=== PATIENT | female | born 1950 | race Caucasian/White ===

== ENCOUNTER 2023-02-28 22:38 | Observation (INO) | payer OTHER, MEDICARE ==
[2023-02-28 22:46] VITALS: BMI 28.1
[2023-02-28] MEDS ORDERED: ACETAMINOPHEN 1000 MG/100 ML BAG IVPB ONE (23:32)
[2023-02-28] MEDS ORDERED: ACETAMINOPHEN INJECTION 100 ML IVPB ONE (23:38)
[2023-02-28 23:45] LABS: BASO % 0.6 % (0-2.0); EOS % 2.1 % (0-4.5); HEMATOCRIT 41.4 % (32.4-45.2); HEMOGLOBIN 13.7 GM/dL (10.7-15.3); LYMPH % 35.2 % (8-40); MCH 26.7 pg (25.7-33.7); MEAN CELL VOLUME 80.7 fl (80-96); MEAN PLT VOLUME 8.3 fl (7.5-11.1); MONO % 9.4 % (3.8-10.2); NEUT % 52.7 % (42.8-82.8); PLATELET COUNT 259 10^3/uL (134-434); RBC 5.13 M/mm3 (3.60-5.2); RDW 16.8 % (11.6-15.6); WHITE BLOOD COUNT 8.5 K/mm3 (4.0-10.0)
[2023-03-01 00:03] LABS: POTASSIUM 4.5 mmol/L (3.5-5.1)
[2023-03-01] MEDS ORDERED: morphine CARPU-JECT 4 MG/1 ML DISP.SYRIN IVPUSH ONE (00:03)
[2023-03-01] MEDS ORDERED: LIDOCAINE 5% TOPICAL PATCH TP ONE (00:03)
[2023-03-01 00:05] LABS: CALCIUM 8.6 mg/dL (8.5-10.1)
[2023-03-01 00:06] LABS: ALBUMIN 3.9 g/dl (3.4-5.0); BLOOD UREA NITROGEN 21.8 mg/dL (7-18); MAGNESIUM 2.2 mg/dL (1.8-2.4)
[2023-03-01 00:09] LABS: CREATININE 0.9 mg/dL (0.55-1.3)
[2023-03-01 00:10] LABS: BILIRUBIN,TOTAL 0.3 mg/dL (0.2-1); TOT PROT 6.6 g/dl (6.4-8.2)
[2023-03-01] MEDS ORDERED: morphine SULFATE 4 MG/ML VIAL ONE (00:21)
[2023-03-01] MEDS ORDERED: LIDOCAINE 4% PATCH TP ONE (00:21)
[2023-03-01] MEDS ORDERED: ACETAMINOPHEN 325 MG TABLET (FP) PO PRN (06:10)
[2023-03-01] MEDS ORDERED: ALBUTEROL SO4 HFA INHALER IH PRN (06:23)
[2023-03-01] MEDS ORDERED: ACETAMINOPHEN 325 MG TABLET (FP) ONE (06:32)
[2023-03-01] MEDS: INSULIN SLIDING SCALE (NOVOLOG) 1 VIAL SQ SCH ×2 (08:18→11:49)
[2023-03-01 08:41] LABS: HEMOGLOBIN 12.8 GM/dL (10.7-15.3); MCH 26.5 pg (25.7-33.7); MEAN CELL VOLUME 82.7 fl (80-96); MEAN PLT VOLUME 8.8 fl (7.5-11.1); PLATELET COUNT 245 10^3/uL (134-434); RBC 4.84 M/mm3 (3.60-5.2); RDW 16.6 % (11.6-15.6); WHITE BLOOD COUNT 8.4 K/mm3 (4.0-10.0)
[2023-03-01 08:53] LABS: POTASSIUM 4.4 mmol/L (3.5-5.1)
[2023-03-01] MEDS ORDERED: LOSARTAN POTASSIUM 25 MG TABLET ONE (09:02)
[2023-03-01] MEDS ORDERED: SERTRALINE HCL 50 MG TABLET (FP) ONE (09:02)
[2023-03-01] MEDS ORDERED: PANTOPRAZOLE 20 MG TABLET PO ONE (09:03)
[2023-03-01] MEDS ORDERED: ENOXAPARIN NA (PORCINE) 40 MG/0.4 ML DISP.SYRIN SQ ONE (09:03)
[2023-03-01 09:06] LABS: ALBUMIN 3.6 g/dl (3.4-5.0); BLOOD UREA NITROGEN 19.4 mg/dL (7-18); CALCIUM 8.5 mg/dL (8.5-10.1)
[2023-03-01 09:07] LABS: MAGNESIUM 2.3 mg/dL (1.8-2.4)
[2023-03-01 09:08] LABS: BILIRUBIN,TOTAL 0.3 mg/dL (0.2-1); CREATININE 0.8 mg/dL (0.55-1.3)
[2023-03-01 09:26] VITALS: BP 137/71; PULSE 80; RESP 14; TEMP 98
[2023-03-01] MEDS ORDERED: ENOXAPARIN NA (PORCINE) 40 MG/0.4 ML DISP.SYRIN SQ SCH (10:00)
[2023-03-01] MEDS ORDERED: SERTRALINE HCL 50 MG TABLET (FP) PO SCH (10:00)
[2023-03-01] MEDS ORDERED: LOSARTAN POTASSIUM 25 MG TABLET PO SCH (10:00)
[2023-03-01] MEDS ORDERED: PANTOPRAZOLE 20 MG TABLET PO SCH (10:00)
[2023-03-01] MEDS ORDERED: BUDESONIDE/FORMETEROL FUMARATE 160/4.5 mcg INHALER IH SCH (10:00)
[2023-03-01] MEDS ORDERED: LIDOCAINE PATCH REMOVAL MC ONE (12:00)
[2023-03-01] MEDS ORDERED: MONTELUKAST NA 10 MG TABLET PO SCH (22:00)
[2023-03-01] MEDS ORDERED: ATORVASTATIN CA 10 MG TABLET (FP) PO SCH (22:00)
== END 2023-03-01 13:00 | disposition home or self-care (01) ==
LOC: JER 22:38 → JERBED 03-01 03:11
PROVIDERS: ADMIT Internal Medicine; ATTEND Internal Medicine
PROC: 3E033NZ Introduction of Analgesics, Hypnotics, Sedatives into Peripheral Vein, Percutaneous Approach (ICD-10-PCS; principal; 2023-03-01)
PROC: 3E023GC Introduction of Other Therapeutic Substance into Muscle, Percutaneous Approach (ICD-10-PCS; 2023-03-01)
PROC: 3E033NZ Introduction of Analgesics, Hypnotics, Sedatives into Peripheral Vein, Percutaneous Approach (ICD-10-PCS; 2023-03-01)
DX: M25.512 Pain in left shoulder (principal); R10.12 Left upper quadrant pain; R07.81 Pleurodynia; K21.9 Gastro-esophageal reflux disease without esophagitis; I10 Essential (primary) hypertension; E78.5 Hyperlipidemia, unspecified; F41.8 Other specified anxiety disorders; K59.00 Constipation, unspecified; E11.9 Type 2 diabetes mellitus without complications; M81.0 Age-related osteoporosis without current pathological fracture; Z90.49 Acquired absence of other specified parts of digestive tract; Z98.84 Bariatric surgery status; Z91.041 Radiographic dye allergy status; M54.9 Dorsalgia, unspecified; M19.90 Unspecified osteoarthritis, unspecified site
CPT/HCPCS: 36415; 71045-TC-FY; 71250-TC; 73030-TC-LT-FY; 74176-TC; 80053; 82550; 82962; 83690; 83735; 84100; 84484; 85025; 85027; 85379; 87635; 93005; 93010; 96372; 96374; 96375; 99285-25; G0378